=== PATIENT | male | born 1955 ===

== ENCOUNTER → 2025-07-06 | Outpatient (CLI) | payer MEDICARE, OTHER ==
--- NOTE | 2025-07-19 07:11 | HMCIMG ---
EXAM: CT Cardiac calcium scoring. CLINICAL HISTORY: Screening. TECHNIQUE: Thin collimated axial CT cardiac images were obtained. A CT scan is done according to ALARA (As Low As Reasonably Achievable). CONTRAST: None. COMPARISON: None provided. FINDINGS: Calcium Score: VESSEL Number of lesions Volume mm3 Equi. Mass/mg Calcium score LM 5 36.1 - 46.7 LAD 6 249.8 - 318.4 LCX 1 15.2 - 1 4.4 RCA 0 0 - 0 Total 12 301.1 - 379.5 IMPRESSION: The total calcium score is 379.5. 68th percentile. /[place]
== END | disposition home or self-care (01) ==
LOC: RAH 13:35
PROVIDERS: ATTEND Internal Medicine Cardiovascular Disease
DX: Z13.6 Encounter for screening for cardiovascular disorders (principal)
CPT/HCPCS: 75571